=== PATIENT | female | born 1995 | race African-American/Black ===

== ENCOUNTER 2016-10-04 07:36 | Emergency (ER) | payer MEDICAID ==
[~2016-10-04] VITALS: Ht 160 cm; Wt 62.6 kg
[~2016-10-04 07:36] MED LIST: PRENCAP15
[2016-10-04] MEDS ORDERED: ONDANSETRON HCL 4 MG/2 ML VIAL IV ONE (09:30)
[2016-10-04] MEDS ORDERED: MORPHINE SULFATE 4 MG/ML SYRG IV ONE ×2 (09:30→11:45)
[2016-10-04 10:14] LABS: BUN/Creatinine Ratio 19.4; Calcium 9.3 mg/dL (8.5-10.1); Potassium 4.1 mmol/L (3.5-5.1)
[2016-10-04 10:17] LABS: Basophils # (auto) 0 uL; Basophils % (auto) 1.1 % (0.0-2.0); DEFINITIVE VIEW TRANSMISSION; Eosinophils # (auto) 0.2 uL; Eosinophils % (auto) 4.9 % (0.0-7.0); Hematocrit 43.8 % (36.0-46.0); Hemoglobin 13.8 g/dL (12.2-16.2); Lymphocytes # (auto) 1.7 uL; Lymphocytes % (auto) 39.5 % (10.0-50.0); Mean Corpuscular Hemoglobin 26.8 pg (28.0-32.0); Mean Corpuscular Hgb Conc. 31.6 g/dL (32.0-36.0); Mean Corpuscular Volume 84.9 fL (80.0-100.0); Mean Platelet Volume 8.6 fL (7.4-10.4); Monocytes # (auto) 0.4 uL; Monocytes % (auto) 10.2 % (0.0-12.0); Neutrophils # (auto) 1.9 uL; Neutrophils % (auto) 44.3 % (37.0-80.0); Platelet Count (auto) 261 10^3/uL (140-450); Red Cell Distribution Width 13.6 % (11.6-16.0); White Blood Cell 4.2 10^3/uL (4.4-10.8)
[2016-10-04 11:35] VITALS: BP 119/74
== END 2016-10-04 12:11 | disposition home or self-care (01) ==
LOC: ER 07:36
DX: M54.9 Dorsalgia, unspecified (principal); Z91.010 Allergy to peanuts; V47.6XXA Car passenger injured in collision with fixed or stationary object in traffic accident, initial encounter; Y93.89 Activity, other specified; Y99.8 Other external cause status; Y92.488 Other paved roadways as the place of occurrence of the external cause
CPT/HCPCS: 36415; 72131; 80048; 84702; 85025; 94761; 96374; 96375; 96376; 99285; J2270; J2405